=== PATIENT | female | born 2005 | race Caucasian/White ===

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

== ENCOUNTER 2025-02-23 20:04 | Emergency (ER) | payer SELFPAY ==
--- OUTSIDE RECORDS SUMMARY | 2024-12-31 10:27 | XMS_ITS ---
Author Name Auto Generated Organization OHIP Care Team Providers Care Aml Analyst Name Role Phone DANIEL COOLEY Attending Unavailable DANIEL COOLEY Attending Unavailable NO FAMILY, PHYSICIAN Primary Care Unavailable Ryan ([facility]), Mirta Gracia Attending Unavailkeely e Ryan ([facility]), Mirta Gracia Admitting Unavailabl e Zulay, Suman Allen Attending Unavailable Suman Biswas Admitting Unavailable Daniel Cooley Admitting Unavailable NO FAMILY, PHYSICIAN Primary Care Unavailable Daniel Cooley Attending Unavailable Ryan THANG, Mirta Alexandra Attending Unavailjonny Albert ELECTRICAL RESEARCH ENGINEER-C, Lizbeth Kirby Primary Care Unavai lable PROBLEMS DATE TYPE CONDITION / CODE ATTENDING STATUS [facility] 12/21/2024 Working diagnosis Positive test / Z32.01(ICD-10) Mirta Zapata Active [facility] 12/21/2024 Working diagnosis Encounter for supervision of normal 1st , 1st trimester / Z34.01(ICD-10) Mirta Zapata Active [facility] 12/18/2024 Unknown Missed / O02.1(ICD-10) Daniel Cooley [facility] 12/12/2024 Unknown Encounter for supervision of normal first , first trimester / Z34.01(ICD-10) Ryan ([facility])Mirta [facility] PROCEDURES DATE CODE DESCRIPTION STATUS SOURCE 11/14/2024 38521(CPT-4) URINE TEST Completed [facility] 11/14/2024 50250(CPT-4) OFFICE/OUTPATIEN T VISIT, EST Completed [facility] RESULTS L Observed: 12/18/2024 12:00 AM Status: F Source: [facility] ----- ------- Specimen: [id number] Received: 12/18/24 Status: GERALD Gant Num: [id number] Spec Type: Surgical Subm Dr: Daniel Cooley DO Tissues: A Products of Conception - Spontaneous or Missed (PRODUCTS OF MISSED Procedures: NADIR/Gus Mohamud/Mellissa L4 ----- ------- Age/ Patient Sex Location Account Attending Physician ----- ------- Halle Stallworth 18/F [place] [id number] Daniel Cooley DO ----- ------- SPEC NUM: [id number] RECD: 12/18/24 STATUS: GERALD GANT NUM: [id number] SHANA: 12/18/[address]: Daniel Cooley DO ENTERED: 12/18/[address] [facility] DR: SPEC TYPE: Surgical DEPT: S ENTERED BY: [id number] RECV BY: [id number] ORDERED: HE/2, Gross/Micro L4 ORDERED: HE/2, Gross/Micro L4 Pathological Diagnosis Uterine content/products of conception, curettage: - First trimester immature chorionic villi with decidualized tissue consistent with intrauterine . Clinical Information Missed Gross Description Received in formalin labeled with the patients name, date of , and POC is an aspiration device with larkin-pink, glistening tissue fragments consistent with decidua, admixed with a small amount of hemorrhagic material, 6 x 3.5 x 1.5 cm in aggregate. Within the fragmented tissue is an identifiable portion of pale benitez, feathery chorionic villi, 2 x 1.3 x 0.3 cm. No tissue is identified. The chorionic villi is entirely submitted in A1 with containers sales representative sections of the decidua submitted in A2. (2, , [id number] A) Microscopic Description Microscopic examination is performed. ----- ------- Specimen: [id number] Received: 12/18/24 Status: GERALD Gant Num: [id number] Spec Type: Surgical Subm Dr: Daniel Cooley DO Tissues: A Products of Conception - Spontaneous or Missed (PRODUCTS OF MISSED Procedures: Gus/Micro L4 ----- ------- Patient: Lore Stallworthjonny Garcia [id number] (Continued) ----- ------- Specimen: [id number] Received: 12/18/24 (Continued) Signed (signature on file) Tomas Machuca MD 12/21/24 1440 ----- ------- Specimen: [id number] Received: 12/18/24 Status: GERALD Gant Num: [id number] Spec Type: Surgical Subm Dr: Daniel Cooley DO Tissues: A Products of Conception - Spontaneous or Missed (PRODUCTS OF MISSED Procedures: Gross/Micro L4 ----- ------- Patient: Halle Stallworth [id number] (Continued) ----- ------- Specimen: Received: 12/18/24 (Continued) CPT Codes 32734 ----- ------- ----- ------- Specimen: [id number] Received: 12/18/24 Status: GERLAD Gant Num: [id number] Spec Type: Surgical Subm Dr: Danile Cooley DO Tissues: A Products of Conception - Spontaneous or Missed (PRODUCTS OF MISSED Procedures: HE/2, Gross/Micro L4 ----- ------- Patient: Halle Stallworth [id number] (Continued) ----- ------- Signed (signature on file) Tomas Machuca MD 12/21/24 1440 US OB TRANSVAGINAL Observed: 12/12/2024 6:57 PM Status: COMPLETED Source: [place] [address] Ultrasound Report Signed Patient: Halle Stallworth MR#: [id number] : 2005 Acct:[id number] Age/Sex: 18 / F ADM Date: 12/12/24 Loc: Room: Type: [facility] Attending Dr: Mirta Davis ([facility]) DIANA Ordering Provider: Mirta Davis APRN, WHCNP Date of Service: 12/12/24 US/US OB <= 14 weeks fetus: Z3A.01,Z34.01, ([id number]) US/US OB transvaginal: . Copies to: Mirta Davis APRN, WHCNP Obstetrical ultrasound for fetus less than 14 weeks transabdominal and transvaginal imaging HISTORY: Assessment of size and dates. Cramping this morning. COMPARISON: None No cardiac activity identified. The limited transabdominal imaging due to filling of bladder and bowel gas. Ovaries not visualized. No fluid in cul-de-sac. [place]-rump length 1.9 cm consistent with 8 weeks 4 days. Yolk sac measures 3 mm. Estimated due date by ultrasound 07/20/2025. US/US OB <= 14 weeks fetus IMPRESSION: Absence of cardiac activity is an intrauterine gestation 8 weeks 4 days. Concern for demise. No free fluid. No adnexal mass. Preliminary findings given. Impression dictated by: Parth Poole M.D. 12/12/2024 7:00 PM Dictation Location: [place] [address] Tech: Sarita Jimenez; Francine Strauss Transcribed By: PWS 12/12/241899 Dictated By: Parth Poole DO 12/12/241856 Signed By: <Electronically signed by Parth Poole DO in OV> 12/12/241899 URINE CULTURE Observed: 11/07/2024 2:40 PM Status: F Source: [facility] ORGANISM: Escherichia coli ( O:ESCCOL) [place] Count >100,000 Aerobic JUAN JOSE Charge (NMIC56) SUSCEPTIBILITY ORGANISM: O:ESCCOL ANTIBIOTIC INTERPRETATION JUAN JOSE Amikacin S <16 Amoxacillin/K Clavulanate S <8 Ampicillin R >16 Ampicillin/Sulbactam I 1616/8 Aztreonam S <4 Cefazolin S 4 Cefepime S <2 Ceftazidime S <1 Ceftazidime/Avibactam S <4 Ceftolozane/Tazobactam S <2 Ceftriaxone S <1 Cefuroxime S <4 Ciprofloxacin S <0.25 Ertapenem S <0.5 Gentamicin S <2 Levofloxacin S <0.5 Meropenem S <1 Meropenem/Vaborbactam S <2 Nitrofurantoin S <32 Piperacillin/Tazobactam S <8 Tetracycline S <4 Tigecycline S <2 Tobramycin S <2 Trimethoprim/Sulfamethoxazole S <0.5 S = SUSCEPTIBLE I = INTERMEDIATE R = RESISTANT BLANK = DATA NOT AVAILABLE, OR DRUG NOT ADVISABLE OR TESTED R* = RESISTANCE DUE TO EXTENDED SPECTRUM BETA-LACTAMASES ESBL = EXTENDED SPECTRUM BETA-LACTAMASE TFG = THYMIDINE-DEPENDENT STRAIN DINH = BETA-LACTAMASE POSITIVE IB = INDUCIBLE BETA-LACTAMASE. APPEARS IN PLACE OF 'S' WITH SPECIES KNOWN TO POSSESS INDUCIBLE BETA-LACTAMASES. POTENTIALLY THEY MAY BECOME RESISTANT TO ALL B-LACTAM DRUGS. PERFORMED BY: [place] [id number] PATHOLOGIST RAND TACKER SOHA JIMENEZ M.D. Performed By: #### CUU #### [place] [id number] [facility] ALLERGIES DATE TYPE / CODE NAME / CODE REACTION SEVERITY SOURCE 12/18/2024 Drug Allergy/403426 002(SNOMED CT) amoxicillin/F0 36316853(RXNOR M) Rash Unknown [facility] 12/18/2024 Drug Allergy/654139 002(SNOMED CT) latex/L2688253 21(RXNORM) swelling Moderate (Severity Modifier) (Qualifier Value) [facility] ENCOUNTERS ADMIT/DISCHARGE ACCOUNT NUMBER ADMITTING ENCOUNTER CLASS LOCATION SOURCE 12/31/2024/01/01/20 [id number] Ambulatory Building:[facility] 12/21/2024 [id number] Ambulatory Building:[facility] 12/18/2024/12/19/19 [id number] [facility] 12/13/2024/12/14/19 [id number] Ambulatory Building:[facility] EPIC 12/12/2024/12/13/19 [id number] Ryan ([facility] 11/07/2024/11/08/19 [id number] [facility]uman Biswas [facility] PAYERS ENCOUNTER GUARANTOR PAYER SUBSCRIBER SOURCE 12/31/2024 HALLE SOTO: [id number] [place], [place] [address]Zbh: () Primary Insurance:MEDICAID [facility] Number: [id number] ve Date:2024-11-27 HALLE COBOSOB: [id number] [place] [address] [facility] EPIC 12/21/2024 Halle CobosOB: [place], [place] [address]Mzr: (HP) Primary Insurance:Medicaid Primary - FQHCPolicy Number: [id number] ve Date: Halle MerceryDOB: [id number] [place], [place] [address]Zof: (HP) [facility] 12/18/2024 Halle Mercery[address] [place] [address]Xry: (HP) Primary Insurance:MedicaidP olicy Number: [id number] Date:2024-12-13 Halle MerceryDOB: [id number] [place] [address]Cdh: (HP) [facility] 12/18/2024 Secondary Insurance:Self PayPolicy Number: Effective Date:2024-12-13 NOT GIVENUNK [facility] 12/13/2024 HALLE MERCERYDOB: [place], [place] [address]Jkb: (HP) [place]: [id number] ve Date:2024-11-27 HALLE COBOSOB: [id number] [place] [address] [facility] 12/12/2024 Halle Mer[address] [place] [address]Gse: (HP) Primary Insurance:MedicaidP olicy Number: [id number] ve Date:2024-11-28 Halle MerceryDOB: [id number] [place] [address]Bvs: (HP) [facility] 12/12/2024 Secondary Insurance:Self PayPolicy Number: Effective Date:2024-11-28 [facility] 11/07/2024 Lizabeth Petersen[address] [place] [address]Vbw: () Primary Insurance:Self PayPolicy Number: Effective Date:2024-11-07 [facility]
[2025-02-23 20:10] VITALS: BP 127/90; PULSE 119; TEMP 36.9; O2SAT 100
--- NOTE | 2025-02-23 20:18 | ED.GENADUL1 ---
HPI HPI - General Adult General Chief complaint: Urogenital-Female Stated complaint: UTI Time Seen by Provider: 02/23/25 20:18 Source: patient Mode of arrival: walk-in History of Present Illness HPI narrative: Patient presents to the emergency department with a 2 to 3-day history of urinary urgency, frequency, dysuria and some lower back pain. Patient denies any abdominal pain, vomiting or diarrhea. No vaginal discharge. Patient does states she is on her period currently but it did come early. No known fevers Onset (ago): day(s) Related Data Previous Rx's ?Medication ?Instructions ?Recorded nitrofurantoin 100 mg PO BID 7 days #14 caps 02/23/25 monohydrate/macrocrystals 100 mg capsule (Macrobid) Allergies Allergy/AdvReac Type Severity Reaction Status Date / Time amoxicillin Allergy Severe Rash Verified 11/07/24 14:09 Opioid HPI Opioid Management Most Recent Opioid Data: Last Pain Scale 3 03/21/23, 20:23 Review of Systems ROS Status of ROS 10 or more systems reviewed and unremarkable except as noted in history and below Constitutional Denies: fever or chills Gastrointestinal Denies: abdominal pain, vomiting or diarrhea Genitourinary Reports: painful urination, urinary frequency, urinary urgency, vaginal bleeding and irregular period PFSH PFSH Social History Smoking status: Current every day smoker Little interest or pleasure in doing things: not at all Feeling down, depressed, or hopeless: not at all Exam Constitutional Vital Signs, click to edit/add: Last Vital Signs Temp 98.4 F 02/23/25 20:10 Pulse 119 H 02/23/25 20:10 Resp 18 02/23/25 20:10 BP 127/90 02/23/25 20:10 Pulse Ox 100 02/23/25 20:10 O2 Del Method Room Air 02/23/25 20:10 Documenting provider has reviewed patient's vital signs: yes Common normals: no apparent distress, average body habitus, oriented x3, no limitations, healthy appearing, alert and well nourished Respiratory Common normals: normal respiratory effort Cardio Common normals: regular rate GI Common normals: Normal to inspection, nondistended, normoactive bowel sounds present, soft to palpation and non-tender Back & Pelvis Common normals: no CVA tenderness Course Course Hospital Course: Patient presented to the emergency department with a 2 to 3-day history of UTI symptoms but also had a concern of possible so test was ordered as well. Vital Signs Vital signs: Vital Signs Temperature 98.4 F 02/23/25 20:10 Pulse Rate 119 H 02/23/25 20:10 Respiratory Rate 18 02/23/25 20:10 Blood Pressure 127/90 02/23/25 20:10 Pulse Oximetry 100 02/23/25 20:10 Oxygen Delivery Method Room Air 02/23/25 20:10 Temperature 98.4 F 02/23/25 20:10 Pulse Rate 119 H 02/23/25 20:10 Respiratory Rate 18 02/23/25 20:10 Blood Pressure 127/90 02/23/25 20:10 Pulse Oximetry 100 02/23/25 20:10 Oxygen Delivery Method Room Air 02/23/25 20:10 Medical Decision Making MDM Narrative Medical decision making narrative: Patient presented to the emergency department with UTI symptoms and possible . Urinalysis consistent with UTI however patient is afebrile, nontoxic and no signs of pyelonephritis on physical exam. Patient will be treated with oral antibiotics and PCP follow-up Differential Diagnosis Differential Diagnosis: , urethritis, cystitis, pyelonephritis Lab Data Lab results reviewed: Yes I reviewed the patient's lab results Lab results narrative: Large bacteria with 75-100 white cells consistent with UTI Labs: Lab Results 02/23/25 Range/Units 20:13 Urine Color Lt. yellow (YELLOW) Urine Clarity Sl cloudy (CLEAR) Urine pH 7.0 (5.0-9.0) Ur Specific [place] 1.015 (1.005-1.025) Urine Protein Trace (NEG/TRACE) mg/dL Urine Glucose (UA) Negative (NEGATIVE) mg/dL Urine Ketones Negative (NEGATIVE) mg/dL Urine Occult Blood Moderate A (NEGATIVE) Urine Nitrite Negative (NEGATIVE) Urine Bilirubin Negative (NEGATIVE) Urine Urobilinogen 0.2 (0.2-1.0) EU/dL Ur Leukocyte Esterase Small A (NEGATIVE) Urine RBC 10-20 A (0-2) #/HPF Urine WBC 75-100 A (NONE SEEN) #/HPF Ur Squamous Epith Cells Moderate A (NONE/RARE) #/LPF Urine Crystals None seen (None Seen) #/HPF Urine Bacteria Large A (NONE SEEN) #/HPF Urine Casts None seen (NONE SEEN) #/LPF Urine Mucus Trace A (NONE SEEN) Ur Culture Indicated? Yes-[facility] Urine HCG, Qual Negative (NEGATIVE) Discharge Plan Discharge Chief Complaint: Urogenital-Female Clinical Impression: Urinary tract infection Qualifiers: Urinary tract infection type: site unspecified Hematuria presence: without hematuria Qualified Code(s): N39.0 - Urinary tract infection, site not specified Patient Disposition: Home, Self-Care Time of Disposition Decision: 20:35 Condition: Good Mode of Transportation: Private Vehicle Prescriptions / Home Meds: New nitrofurantoin monohyd/m-cryst [Macrobid] 100 mg capsule 100 mg PO BID 7 Days Qty: 14 0RF Rx Instructions: must administer with a meal/food Print Language: Scottish Instructions: Urinary Tract Infection in Women (DC) Additional Instructions: Follow up with your family DR and return to [facility] for any problems or concerns Referrals: Physician,Non-Staff, [Primary Care Provider] - 1 week Discharge Date/Time: 02/23/25 20:46
[2025-02-23 20:20] LABS: Glucose Urine UA NEGATIVE (NEGATIVE)
[2025-02-23 20:24] LABS: HCG Qualitative Urine* NEGATIVE (NEGATIVE)
[2025-02-23 20:28] LABS: Crystals Seen? None Seen #/HPF (None Seen)
[2025-02-23 20:29] LABS: Cast Seen? NONE SEEN #/LPF (NONE SEEN); Urine Culture Indicated YES-FRMC
[2025-02-23] MEDS: NITROFURANTOIN MONOHYD/MAC-CRST 100 MG CAPSULE PO (20:40)
== END 2025-02-23 20:46 | disposition home or self-care (01) ==
PROVIDERS: Emergency Provider Internal Medicine
DX: N39.0 Urinary tract infection, site not specified (principal); F17.200 Nicotine dependence, unspecified, uncomplicated
CPT/HCPCS: 81001; 84703; 87086; 87088; 87186; 99283